=== PATIENT | male | born 1970 | race Hispanic/Latino ===

== ENCOUNTER 2021-01-26 07:55 | Outpatient (CLI) | payer SELFPAY ==
[2021-01-26 10:07] LABS: Hemoglobin 15.7 g/dL (13.5-17.5); Mean Corpuscular HGB CONC 32.2 g/dL (32.0-36.0); Mean Corpuscular Hemoglobin 29.5 pg (27.0-33.0); Mean Corpuscular Volume 91.4 fl (81.2-95.1); Platelet Count 177 10x3/uL (150-450); RBC Distribution Width 12.1 % (11.5-14.5); Red Blood Cell (RBC) Count 5.33 10x6/uL (4.32-5.72); White Blood Cell (WBC) Count 7.5 10x3/uL (3.5-10.5)
[2021-01-26 11:08] LABS: Anion Gap 13 mmol/L (10-20); BUN (Urea Nitrogen) 14 mg/dL (8.4-25.7); Calc. Creatinine Clearance 0 mL/min (70-130); Calcium 9.6 mg/dL (7.8-10.44); Carbon Dioxide 30 mmol/L (22-29); Chloride 102 mmol/L (98-107); Glucose 159 mg/dL (70-105); Potassium 4.4 mmol/L (3.5-5.1); Sodium 141 mmol/L (136-145)
[2021-01-27 03:22] LABS: SARS-CoV-2 NAA Rapid Test Not Detected (NotDetected)
== END 2021-01-26 07:56 | disposition home or self-care (01) ==
LOC: LABBT 07:55
PROVIDERS: ATTEND Orthopaedic Surgery
DX: Z01.818 Encounter for other preprocedural examination (principal); S62.002A Unspecified fracture of navicular [scaphoid] bone of left wrist, initial encounter for closed fracture; Z20.822 Contact with and (suspected) exposure to COVID-19
CPT/HCPCS: 80048; 85027; 87635; U0002; U0003; U0005

== ENCOUNTER 2021-01-31 08:35 | Day surgery (SDC) | payer OTHER ==
[2021-01-26 13:39] VITALS: BMI 39.9
[2021-01-31] MEDS ORDERED: Neomycin-Polymyxin 1 ML AMP ONE (10:43)
[2021-01-31] MEDS ORDERED: Fentanyl 100 MCG/2 ML VIAL ONE ×2 (11:06→11:53)
[2021-01-31] MEDS ORDERED: Midazolam HCl 2 mg/2 ml Vial ONE (11:06)
[2021-01-31] MEDS ORDERED: Ropivacaine 0.5% HCl/PF (150 MG/30 ML VIAL) ONE (12:21)
[2021-01-31] MEDS ORDERED: Ondansetron PF 4 MG/2 ML Vial ONE (12:21)
[2021-01-31] MEDS ORDERED: PROPOFOL 200 MG/20 ML VIAL ONE (12:21)
[2021-01-31] MEDS ORDERED: Dexamethasone 20 MG/5 ML VIAL ONE (12:21)
[2021-01-31] MEDS ORDERED: HYDROcodone/Acetaminophen 5/325 mg Tablet ONE (15:07)
== END 2021-01-31 15:40 | disposition home or self-care (01) ==
LOC: SDC 08:35
PROVIDERS: ATTEND Orthopaedic Surgery
PROC: 0PSN04Z Reposition Left Carpal with Internal Fixation Device, Open Approach (ICD-10-PCS; principal; 2021-01-31)
PROC: 3E0T3BZ Introduction of Anesthetic Agent into Peripheral Nerves and Plexi, Percutaneous Approach (ICD-10-PCS; principal; 2021-01-31)
DX: S67.32XA Crushing injury of left wrist, initial encounter (principal); S62.032A Displaced fracture of proximal third of navicular [scaphoid] bone of left wrist, initial encounter for closed fracture; G89.18 Other acute postprocedural pain; J45.909 Unspecified asthma, uncomplicated; E11.9 Type 2 diabetes mellitus without complications; Z79.1 Long term (current) use of non-steroidal anti-inflammatories (NSAID); Z79.84 Long term (current) use of oral hypoglycemic drugs; Z88.6 Allergy status to analgesic agent; Z91.018 Allergy to other foods; W31.82XA Contact with other commercial machinery, initial encounter
CPT/HCPCS: 36416; 76000; J0690; J1100; J2250; J2405; J2704; J2795; J3010

== ENCOUNTER 2021-02-09 15:44 | Outpatient (CLI) | payer SELFPAY ==
[2021-02-10 11:14] LABS: SARS-CoV-2 PCR by NAA Not Detected (NotDetected)
== END 2021-02-09 15:45 | disposition home or self-care (01) ==
LOC: LABBT 15:44
PROVIDERS: ATTEND Orthopaedic Surgery
DX: Z01.812 Encounter for preprocedural laboratory examination (principal); S62.002A Unspecified fracture of navicular [scaphoid] bone of left wrist, initial encounter for closed fracture; Z20.822 Contact with and (suspected) exposure to COVID-19
CPT/HCPCS: U0003; U0005

== ENCOUNTER 2021-02-14 10:15 | Day surgery (SDC) | payer OTHER ==
[2021-02-13 12:34] VITALS: BMI 40.4
[~2021-02-14 10:15] MED LIST: Dexamethasone 20 MG/5 ML VIAL ONE; Lidocaine 1% PF 5 ML VIAL ONE; Ondansetron PF 4 MG/2 ML Vial ONE; PROPOFOL 200 MG/20 ML VIAL ONE
[2021-02-14] MEDS ORDERED: Neomycin-Polymyxin 1 ML AMP ONE (11:46)
[2021-02-14] MEDS ORDERED: Fentanyl 100 MCG/2 ML VIAL ONE ×2 (11:53→14:42)
[2021-02-14] MEDS ORDERED: Bupivacaine PF 0.5% 30 ML VIAL ONE (12:23)
[2021-02-14] MEDS ORDERED: EPINEPHrine 1 MG/ML AMP ONE (12:23)
[2021-02-14] MEDS ORDERED: Midazolam HCl 2 mg/2 ml Vial ONE (12:37)
[2021-02-14] MEDS ORDERED: HYDROmorphone 0.5 MG/0.5 ML SYRINGE ONE (12:37)
[2021-02-14] MEDS ORDERED: HYDROcodone/Acetaminophen 5/325 mg Tablet ONE (16:33)
== END 2021-02-14 17:20 | disposition home or self-care (01) ==
LOC: SDC 10:15
PROVIDERS: ATTEND Orthopaedic Surgery
PROC: 0PSN04Z Reposition Left Carpal with Internal Fixation Device, Open Approach (ICD-10-PCS; principal; 2021-02-14)
DX: S62.002A Unspecified fracture of navicular [scaphoid] bone of left wrist, initial encounter for closed fracture (principal); E11.9 Type 2 diabetes mellitus without complications; J45.909 Unspecified asthma, uncomplicated; Z79.84 Long term (current) use of oral hypoglycemic drugs; Z88.6 Allergy status to analgesic agent; Z91.018 Allergy to other foods
CPT/HCPCS: 36416; 76000; J0171; J0690; J1100; J1170; J2250; J2405; J2704; J3010; S0020